=== PATIENT | female | born 1960 | race Two or more races ===

== ENCOUNTER → 2024-11-03 | Outpatient (CLI) | payer OTHER, SELFPAY ==
--- NOTE | 2024-11-03 11:43 | EKG_ITS ---
[facility] Test Date: 2024-11-03 Pat Name: JAIDEN ERICKSON Department: Room: - Gender: Female [employer] Developer: SHREYA : 1960 Requested By: Chan Isaacs Order Number: [id number] Reading MD: Chan Isaacs Measurements Intervals [place] Rate: 78 P: 78 [place]: 148 QRS: 82 QRSD: 101 T: 72 QT: 385 QTc: 441 Interpretive Statements SINUS RHYTHM POSSIBLE LEFT ATRIAL ENLARGEMENT [-0.1mV P WAVE IN V1/V2] INCOMPLETE RIGHT BUNDLE BRANCH BLOCK [90+ ms QRS DURATION, TERMINAL R IN V1/V2, 40+ ms S IN I/aVL/V4/V5/V6] No previous ECG available for comparison /store/S0/[id number]/[id number].pdf
== END | disposition home or self-care (01) ==
PROVIDERS: PCP Family Medicine; Referring Provider Family Medicine; Visit Provider Family Medicine
DX: R00.2 Palpitations (principal); R07.89 Other chest pain
CPT/HCPCS: 93005